=== PATIENT | female | born 1935 | race Two or more races ===

== ENCOUNTER 2019-11-14 16:21 | Inpatient (IN) | payer OTHER ==
[~2019-11-14] VITALS: Ht 144.8 cm; Wt 52.2 kg
[2019-11-14] MEDS ORDERED: ENALAPRIL MALEAT5 MG (16:54)
--- NOTE | 2019-11-14 16:54 | NUR ---
SE RECIBE PACIENTE QUE REFIERE CONGESTION NASAL HACE 3 MOREL.
--- NOTE | 2019-11-14 17:00 | NUR ---
SE RECIBE PACIENTE ALERTA Y ORIENTADA X3 QUE REFIERE MARY EN EXCRETA DESDE ESTA MANANA.
[2019-11-14] MEDS ORDERED: NIFEDIPINE20 MG (17:04)
[2019-11-14] MEDS ORDERED: LANTUS SOL100 UNIT/1 (17:04)
[2019-11-14] MEDS ORDERED: ATORVASTATIN CA20 MG (17:04)
[2019-11-14] MEDS ORDERED: OMEPRAZOLE MAGN20 MG (17:05)
[2019-11-14] MEDS ORDERED: TENORMIN50 M1 (17:05)
[2019-11-14] MEDS ORDERED: GLUMETZA500 MG (17:05)
[2019-11-14] MEDS ORDERED: HUMALOG100 UNIT/2 (17:05)
[2019-11-14] MEDS ORDERED: NASAL MIST126 ML (17:05)
--- NOTE | 2019-11-14 18:21 | NUR ---
SE ORIENTA AL PACIENTE SOBRE MEDICAMENTO, MUESTRAS A SER COLECTADAS, CANALIZACION Y CT. PACIENTE REFIERE ENTENDER. SE PROCEEDE A COLECTAR LAS MUESTRAS, CANALIZAR AL PACIENTE Y BRINDAR EL MEDICAMENTO UTILIZANDO MEDIDAS ASEPTICAS. SE VERIFICA PATENTICIDAD DE LA CANALIZACION Y LA MISMA ESTA PATENTE, CHRISTIAN DE EDEMA Y ERITEMA.
[2019-11-20] MEDS ORDERED: CIPRO500 MG PO (11:33)
[2019-11-20] MEDS ORDERED: FLAGYL500MG PO (11:33)
== END 2019-11-20 13:43 | disposition home or self-care (01) | DRG 392 ==
LOC: ER 16:21 → SEC-K 23:08 → MEDJ 11-15 18:47
PROVIDERS: ADMIT Internal Medicine
PROC: BW21Y0Z Computerized Tomography (CT Scan) of Abdomen and Pelvis using Other Contrast, Unenhanced and Enhanced (ICD-10-PCS; principal; 2019-11-14)
PROC: 02HV33Z Insertion of Infusion Device into Superior Vena Cava, Percutaneous Approach (ICD-10-PCS; 2019-11-17)
DX: K52.89 Other specified noninfective gastroenteritis and colitis (principal); K62.5 Hemorrhage of anus and rectum; K64.5 Perianal venous thrombosis; K44.9 Diaphragmatic hernia without obstruction or gangrene; D35.02 Benign neoplasm of left adrenal gland; I10 Essential (primary) hypertension; I87.2 Venous insufficiency (chronic) (peripheral); E11.65 Type 2 diabetes mellitus with hyperglycemia; Z79.4 Long term (current) use of insulin